=== PATIENT | female | born 1995 | race Caucasian/White ===

== ENCOUNTER 2019-11-05 19:32 | Emergency (ER) | payer MEDICAID, SELFPAY ==
[2019-11-05 19:36] VITALS: BP 119/76; PULSE 83; RESP 16; TEMP 36.9; O2SAT 99; BMI 37.4
--- NOTE | 2019-11-05 19:55 | ECG_ITS ---
Measurements Intervals [place] Rate: 81 P: 58 IA: 185 QRS: 59 QRSD: 94 T: 26 QT: 345 QTc: 402 SINUS RHYTHM WITH SINUS ARRHYTHMIA NON SPECIFIC T WAVE ABNORMALITY Compared to ECG 06/01/2015 15:32:35 No significant changes Electronically Signed On 11-06-2019 19:52:42 CDT by Meena Bruce M.D. [id number]
[2019-11-05 20:32] LABS: Basophils % 0.2 %; Eosinophils # 0.1 10^3/uL (0.0-0.8); Eosinophils % 1.5 %; Hemoglobin 12.6 g/dL (11.5-15.3); Lymphocytes # 2.1 10^3/uL (0.8-4.8); Lymphocytes % 22.7 %; Mean Corpuscular HGB Conc 34.1 g/dL (30.0-36.0); Mean Corpuscular Hemoglobin 29.9 pg (28.0-34.0); Mean Corpuscular Volume 87.9 fL (81-99); Mean Platelet Volume 13.6 fL (7.4-10.4); Monocytes # 0.8 10^3/uL (0.2-0.9); Monocytes % 8.1 %; Neutrophils # 6.3 10^3/uL (1.8-7.7); Neutrophils % 67.3 %; Nucleated Red Blood Cells % 0 %; Platelet Count 163 10^3/cmm (130-400); Positive M 1; Red Blood Count 4.21 10^6/uL (4.1-5.3); Red Cell Distribution Width 13.3 % (12.1-15.1); White Blood Count 9.4 10^3/uL (4.0-10.0)
--- NOTE | 2019-11-05 20:37 | ED_ITS ---
HPI - Syncope General: Chief Complaint: Syncope Stated Complaint: SYNC. EPISODE 14 WEEKS PREG Time Seen by Provider: 11/05/19 20:29 Source: patient Mode of arrival: ambulatory Limitations: no limitations History of Present Illness: HPI narrative: Patient is a 24-year-old female who states she is roughly 14 to 15 weeks . She states she laid down in bed today and felt lightheaded and states she either passed out or fell asleep and woke up 4 hours later did not realize it. Patient states she has had vomiting throughout the . She denies any vaginal bleeding. She denies any chest pain or abdominal pain. She denies any headaches. Associated symptoms: Deny abdominal pain, fever(s), headache(s) or nausea Review of Systems Const: Denies: fever(s), chills, body aches or change in appetite Eyes: Denies: blurry vision or eye discomfort ENMT: Denies: throat pain or dental pain Card: Reports: syncope Resp: Denies: dyspnea GI: Denies: abdominal pain, nausea, vomiting or diarrhea : Denies: dysuria Musc: Denies: neck pain or back pain Skin/Breast: Denies: rash Neuro: Denies: headache(s) Psych: Denies: depression Marcio/Lymph: Denies: easy bruising All/Imm: Denies: urticaria PFSH ED PFSH: Social History Smoking and tobacco status: current every day smoker Physical Exam Const: COMMON NORMALS: no acute distress, patient oriented x3 and healthy appearing HENMT: COMMON NORMALS: normocephalic and atraumatic HEAD & SCALP: norm ocephalic and atraumatic Eye: COMMON NORMALS: Equal, round and reactive pupils present and EOMs intact bilaterally PUPIL: Yes Equal, round and reactive pupils present Neck/C-Spine: COMMON NORMALS: full ROM and supple Chest: COMMONS NORMALS: normal inspection of the chest and normal palpation of entire chest wall Resp: COMMON NORMALS: normal respiratory effort, No retractions, No use of accessory muscles and clear to auscultation bilaterally AUSCULTATION: clear to auscultation bilaterally Cardio: COMMON NORMALS: regular rate, regular rhythm and No murmurs present (Cardio) RATE: regular rate RHYTHM: regular rhythm GI: COMMON NORMALS: Normal to inspection, nondistended, normoactive bowel sounds present, Soft to palpation, non-tender and no masses PALPATION: Yes Soft to palpation Extremity: COMMON NORMALS: normal to inspection and full ROM Neuro: COMMON NORMALS: patient oriented x3, moves all extremities and no focal motor deficits Psych: COMMON NORMALS: mental status grossly normal, Normal thought process present and cooperative THOUGHT PROCESS: Normal thought process present Skin: COMMON NORMALS: no rashes or lesions noted and no wounds GENERAL SKIN EXAM: no rashes or lesions noted Course Vital Signs: Vital signs: Vital Signs Temperature 98.4 F 11/05/19 19:36 Pulse Rate 83 11/05/19 19:36 Respiratory Rate 16 11/05/19 19:36 Blood Pressure 119/76 11/05/19 19:36 Pulse Oximetry 99 11/05/19 19:36 MDM - Syncope MDM Narrative: Medical decision making narrative: Patient presents here with couple event. Patient is well-appearing here and has had normal vital signs. Patient's hemoglobin here is normal electrolytes are normal as well. She has had some vomiting this so gave her IV hydration. Patient's bedside ultrasound here showed an IUP consistent with dates with heart rate of 146. Patient's had no vaginal bleeding or abdominal pain. She had no headache or chest pain. She is stable for discharge I will prescribe her Reglan for her nausea and vomiting she is to follow-up with her OB as scheduled. Lab Data: Labs: Lab Results 11/05/19 11/05/19 Range/Units 20:22 20:22 WBC 9.4 (4.0-10.0) 10^3/ uL RBC 4.21 (4.1-5.3) 10^6/u L Hgb 12.6 (11.5-15.3) g/dL Hct 37.0 (37.0-47.0) % MCV 87.9 (81-99) fL MCH 29.9 (28.0-34.0) pg MCHC 34.1 (30.0-36.0) g/dL RDW 13.3 (12.1-15.1) % Plt Count 163 (130-400) 10^3/c mm MPV 13.6 H (7.4-10.4) fL Neut % (Auto) 67.3 % Lymph % (Auto) 22.7 % [place] % (Auto) 8.1 % Eos % (Auto) 1.5 % Baso % (Auto) 0.2 % Neut # (Auto) 6.3 (1.8-7.7) 10^3/u L Lymph # (Auto) 2.1 (0.8-4.8) 10^3/u L [place] # (Auto) 0.8 (0.2-0.9) 10^3/u L Eos # (Auto) 0.1 (0.0-0.8) 10^3/u L Baso # (Auto) 0.0 (0.0-0.1) 10^3/u L Nucleated RBC % (a uto) 0 % Nucleated RBCs # 0.0 /100WBC Sodium 138 (136-145) mmol/L Potassium 3.9 (3.5-5.1) mmol/L Chloride 105 (98-107) mmol/L Carbon Dioxide 20 L (22-29) mmol/L Anion Gap 16.9 (5-19) BUN 5 L (6-20) mg/dL Creatinine 0.4 L (0.5-0.9) mg/dL GFR Calculation 197.8 H (90-130) mL/min Glucose 90 (65-115) mg/dL Calculated Osmolal ity 281 L (285-295) mOsm/k g Calcium 9.7 (8.5-10.5) mg/dL Total Bilirubin 0.2 (0.15-1.2) mg/dL AST 12 (0-32) U/L ALT 13 (0-33) U/L Alkaline Phosphata se 45 (35-105) IU/L Total Protein 6.8 (6.6-8.7) g/dL Albumin 4.1 (3.5-5.2) g/dL Globulin 2.7 (1.3-4.6) g/dL EKG Data^: EKG 1: Attestation: I personally reviewed and interpreted this EKG as follows: EKG interpretation date: 11/05/19 EKG interpretation time: 19:45 Interpretation: nsr hr [address] or t wave abnormalities qrs 94 qtc 383 Discharge Plan Discharge Patient Disposition: Home, Self-Care Clinical Impression: Vomiting affecting Syncope Qualifiers: Syncope type: unspecified Qualified Code(s): R55 - Syncope and collapse Condition: Stable Prescriptions: New Reglan 10 mg tablet 10 mg PO Q6H PRN (Reason: nausea and vomiting) Qty: 20 RF: 0 Discharge Orders: Discharge Order (Routine); Ordered 11/05/19 Ordered By: Dominguez Lenz Referrals: Jin Ayala DO [Emergency Department] - Discharge Diet: Advance as tolerated Discharge Activity: Resume usual activity Patient Instructions: Syncope (ED), Acute Nausea and Vomiting (ED) Coding Level of Care Code ED Producer Director for Chg Fwd Exam Comprehensive
[2019-11-05 20:47] LABS: Alanine Aminotransferase 13 U/L (0-33); Albumin Level 4.1 g/dL (3.5-5.2); Alkaline Phosphatase 45 IU/L (35-105); Anion Gap 16.9 (5-19); Aspartate Amino Transferase 12 U/L (0-32); Blood Urea Nitrogen 5 mg/dL (6-20); Calcium 9.7 mg/dL (8.5-10.5); Carbon Dioxide 20 mmol/L (22-29); Chloride 105 mmol/L (98-107); Globulin 2.7 g/dL (1.3-4.6); Glomerular Filtration Rate 197.8 mL/min (90-130); Glucose 90 mg/dL (65-115); Osmolality Calculated 281 mOsm/kg (285-295); Potassium 3.9 mmol/L (3.5-5.1); Sodium 138 mmol/L (136-145); Total Bilirubin 0.2 mg/dL (0.15-1.2); Total Protein 6.8 g/dL (6.6-8.7)
[2019-11-05] MEDS: sodium chloride 0.9% 1,000 ML 999 ML IV (21:08)
[2019-11-05 21:59] VITALS: BP 98/68; PULSE 68; RESP 18; O2SAT 99
== END 2019-11-05 22:04 | disposition home or self-care (01) ==
LOC: ER 21:05
PROVIDERS: Emergency Provider Emergency Medicine
DX: O26.892 Other specified pregnancy related conditions, second trimester (principal); R55 Syncope and collapse; Z3A.14 14 weeks gestation of pregnancy; O21.9 Vomiting of pregnancy, unspecified; O99.332 Smoking (tobacco) complicating pregnancy, second trimester; F17.210 Nicotine dependence, cigarettes, uncomplicated
CPT/HCPCS: 12345; 36415; 80053; 85025; 93005; 96360; 99282; 99283; J7030

== ENCOUNTER 2019-12-23 10:40 | Outpatient (CLI) | payer MEDICAID, SELFPAY ==
[2019-12-23 10:40] VITALS: BMI 37.8
[2019-12-23 11:00] VITALS: BP 126/77; PULSE 76
[2019-12-23 11:30] VITALS: TEMP 36.9
[2019-12-23 11:31] VITALS: BP 0/0
[2019-12-23 11:33] VITALS: BP 119/70; PULSE 67
[2019-12-23 12:33] LABS: Bilirubin Urine Neg (NEGATIVE); Blood Urine Neg (Negative); Glucose Urine UA Norm (Normal); Ketones Urine Negative (Negative); Leukocyte Esterase Urine Negative (Negative); Nitrate Urine Negative (Negative); Protein Urine Neg (Negative); Sulfosalicylic Acid Urine Negative (Negative); Urine Appearance Clear (CLEAR); Urine Color Straw (Yellow); Urobilinogen Urine Norm (Negative); pH Urine 8 (5-7)
[2019-12-23 12:34] LABS: Add Urine Culture? No; Bacteria Urine TRACE; Squamous Epithelial Cell Urine RARE (0-5)
[2019-12-23 12:55] VITALS: BP 102/69; PULSE 68; RESP 16; TEMP 36.9
== END 2019-12-23 13:00 | disposition home or self-care (01) ==
LOC: OPOB 10:50 → OBGYN 12:51
PROVIDERS: Visit Provider Family Medicine
DX: O26.899 Other specified pregnancy related conditions, unspecified trimester (principal); Z3A.00 Weeks of gestation of pregnancy not specified; M54.9 Dorsalgia, unspecified
CPT/HCPCS: 81001; 99211

== ENCOUNTER 2020-01-01 08:30 | Outpatient (CLI) | payer MEDICAID, SELFPAY ==
--- NOTE | 2020-01-01 08:36 | US_ITS ---
WS: [id number] ULTRASOUND OB COMPLETE TECHNIQUE: Complete ultrasound. CLINICAL INFORMATION: HIGH RISK /2ND TRIMESTER/ANATOMY CHECK COMPARISON: None. FINDINGS: Cervix measures 5.3 cm Single interuterine gestation is identified with cephalic presentation. Placenta is anterior. Placenta grade 0. Normal amniotic fluid volume. cardiac activity: 138 BPM. AGA: 22w1d DEJAN by ultrasound: 05/05/2020 Estimated weight: 507 g BDP: 5.1 cm = 21w3d HC: 19.9 cm = 22w0d AC: 17.2 cm = 22w1d FEMUR LENGTH: 4.0 cm = 23w0d Anatomic survey: Upper lip and profile not well visualized. Anatomic survey is normal. Normal stomach. Kidneys and bladder are normal. Normal 3 vessel cord. Norm al 3 vessel cord insertion. Normal 4 chamber heart. Normal spine. Intracranial contents are normal. N ormal posterior fossa and cisterna magna. US/US OB >= 14 weeks fetus [id number] IMPRESSION: 1. Single intrauterine with visualized cardiac activity. AGA 22w1d w ith DEJAN 05/05/2020. 2. Placenta is anterior. No evidence of abruption or previa. 3. Upper lip and profile not well visualized. Recommend 2-3 week interval foll ow-up for additional attempt. 4. anatomic survey is otherwise normal. 5. Normal amniotic fluid volume. 6. Abdominal circumference and head circumference at the lower end of the rang e for age.
== END 2020-01-01 08:31 | disposition home or self-care (01) ==
PROVIDERS: Visit Provider Family Medicine
DX: Z3A.22 22 weeks gestation of pregnancy (principal); O09.92 Supervision of high risk pregnancy, unspecified, second trimester
CPT/HCPCS: 76805

== ENCOUNTER 2020-01-17 13:57 | Outpatient (CLI) | payer MEDICAID, SELFPAY ==
--- NOTE | 2020-01-17 14:02 | US_ITS ---
WS: [id number] ULTRASOUND EARLY TECHNIQUE: Transabdominal sonography of the pelvis was performed. CLINICAL INFORMATION: HIGH RISK SUPERVISION LMP: 07/25/2019 Beta hCG: Unknown. COMPARISON: January 01, 2020 FINDINGS: Cervix measures 4.5 cm UTERUS AND GESTATIONAL SAC Intrauterine gestations: Estimated gestational age: 23w2d. Estimated delivery May 13, 2020 heart motion: 141 BPM. Subchorionic hemorrhage: None. Follow up anatomy survey demonstrates normal lips, nose, and profile today. Breech presentation with anterior placenta. OVARIES Right ovary: Normal. Left ovary: Normal. FREE FLUID None. 2. Estimated gestational age: 23w2d 3. Estimated delivery May 13, 2020 4. Fetus small for dates. 5. Anatomy follow-up demonstrates normal lips, nose, and profile today. 6. Breech presentation with anterior placenta. US/ OB limited [id number] IMPRESSION: 1. Single live intrauterine .
== END 2020-01-17 13:58 | disposition home or self-care (01) ==
LOC: US 13:58
PROVIDERS: Visit Provider Family Medicine
DX: Z3A.23 23 weeks gestation of pregnancy (principal); O09.92 Supervision of high risk pregnancy, unspecified, second trimester
CPT/HCPCS: 76815

== ENCOUNTER 2020-03-06 12:46 | Emergency (ER) | payer MEDICAID, SELFPAY ==
[2020-03-06 12:48] VITALS: BP 143/76; PULSE 77; RESP 18; TEMP 36.2; O2SAT 99; BMI 38.2
--- NOTE | 2020-03-06 12:57 | W.ED.DENTAL ---
HPI - Dental/Oral General: Chief complaint: Dental/Oral Stated complaint: dental pain Time Seen by Provider: 03/06/20 12:47 Source: patient Mode of arrival: ambulatory Limitations: no limitations History of Present Illness: HPI Narrative: Patient is a 24-year-old female who presents to ED today with complaints of pain and swelling to the right side of her face after a molar extraction last Wednesday. Patient tells me she was prescribed hydrocodone for her pain. She is not having any difficulty swallowing or controlling secretions at this time. Has not noticed any redness to her face. No fevers. MD Complaint: tooth pain Teeth map: 1. molar extraction Context: other (recent surgery) Associated symptoms: Denies ear or mastoid pain, fever(s) or odynophagia Review of Systems Const: Denies: fever(s), chills, body aches, fatigue or malaise Eyes: Denies: change in vision, blurry vision, photophobia, floaters or seeing flashes ENMT: Reports: dental pain; Denies: throat pain, enlarged tonsils, odynophagia, swelling of lips/tongue, oral sores, ear or mastoid pain, nasal discharge or nasal congestion Card: Denies: chest pain Resp: Denies: dyspnea GI: Denies: abdominal pain, nausea, vomiting or diarrhea : Denies: flank pain or dysuria Musc: Denies: neck pain or back pain Skin/Breast: Denies: rash Neuro: Denies: headache(s), numbness in extremities, weakness in extremities or sensory changes PFSH ED PFSH: Social History Smoking and tobacco status: current every day smoker Physical Exam Const: COMMON NORMALS: no acute distress, patient oriented x3, no limitations and alert HENMT: COMMON NORMALS: normocephalic, atraumatic, hearing grossly normal bilaterally, external ears normal, EAC's normal, TM's normal bilaterally, Normal external nose present, Normal nasal mucous membranes and turbinates present, moist oral mucous membranes, oropharynx normal and gingiva normal HEAD & SCALP: normal to inspection, normocephalic and atraumatic FACE & SINUS: normal facial exam and sinuses nontender NOSE: Normal external nose present and Normal nasal mucous membranes and turbinates present EXTERNAL EAR: Yes external ears normal EXTERNAL AUDITORY CANAL: EAC's normal TYMPANIC MEMBRANE: TM's normal bilaterally MOUTH: Normal oral and palatal mucosa present, lip normal and tongue normal TEETH & GINGIVA: Yes other (wisdom tooth extraction site appears clean at this time) THROAT: posterior oropharynx normal, tonsils normal and uvula midline OTHER: pt does have swelling throughout the R side of her face; no facial cellulitis Neck/C-Spine: COMMON NORMALS: full ROM, no lymphadenopathy and no meningeal signs Resp: COMMON NORMALS: normal respiratory effort Cardio: COMMON NORMALS: regular rate and regular rhythm RATE: regular rate RHYTHM: regular rhythm Neuro: COMMON NORMALS: patient oriented x3 SENSORIUM/ORIENTATION: Yes alert MENINGEAL SIGNS: Yes no meningeal signs Course Vital Signs: Vital signs: Vital Signs Temperature 97.2 F L 03/06/20 12:48 Pulse Rate 77 03/06/20 12:48 Respiratory Rate 18 03/06/20 12:48 Blood Pressure 143/76 03/06/20 12:48 Pulse Oximetry 99 03/06/20 12:48 MDM - Dental/Oral MDM Narrative: Medical decision making narrative: will go ahead and place on abx-she has an allergy to penicillins so will place on clindamycin; recommend she follow up with her dentist as soon as possible Discharge Plan Discharge Patient Disposition: Home Clinical Impression: History of third molar tooth extraction Qualifiers: Tooth loss class: unspecified tooth loss Qualified Code(s): K08.409 - Partial loss of teeth, unspecified cause, unspecified class Condition: Stable Prescriptions: New clindamycin HCl 300 mg capsule 300 mg PO Q6H 7 Days Qty: 28 RF: 0 Discharge Orders: Discharge Order (Routine); Ordered 03/06/20 Ordered By: Alejandra Chen Activity Restrictions/Additional Instructions: Please follow-up with your dentist as soon as possible. You may return to the emergency department for worsening pain, swelling, difficulty swallowing, fevers, any other concerns you may have. Discharge Date/Time: 03/06/20 13:23 Coding Level of Care Code ED Airset Caster for Nery Valladares
== END 2020-03-06 13:23 | disposition home or self-care (01) ==
PROVIDERS: Emergency Provider Physician Assistant
DX: K08.409 Partial loss of teeth, unspecified cause, unspecified class (principal); F17.210 Nicotine dependence, cigarettes, uncomplicated
CPT/HCPCS: 12345; 99282

== ENCOUNTER 2020-03-30 22:48 | Emergency (ER) | payer MEDICAID, SELFPAY ==
[2020-03-30 22:53] VITALS: BP 119/73; PULSE 88; RESP 18; TEMP 36.6; O2SAT 98; BMI 37.5
--- NOTE | 2020-03-30 23:03 | XRR_ITS ---
PROCEDURE INFORMATION: Exam: XR Left Ankle Exam date and time: 03/30/2020 11:08 PM Age: 24 years old Clinical indication: Injury or trauma; Swelling (edema); Left; Injury details: Twisted lt ankle, CO pain; Additional info: Injury, 36 weeks TECHNIQUE: Imaging protocol: XR Left ankle. Views: 3 or more views. COMPARISON: No relevant prior studies available. FINDINGS: Bones/joints: There is an age indeterminate small avulsion fracture adjacent to the tip of the medial malleolus and distal fibula. There is calcaneal enthesopathy. Soft tissues: There is soft tissue edema. No foreign body. Other findings: No osteochondral defect. XR/XR ankle LT min 3V* [id number] IMPRESSION: Age-indeterminate avulsion fractures of the medial malleolus and tip of the fibula are noted. No additional acute bony abnormality.
--- NOTE | 2020-03-30 23:06 | W.ED.EXTPRO ---
HPI - Extremity Problem General: Chief complaint: Extremity Injury, Lower Stated complaint: rolled ankle/swollen Time Seen by Provider: 03/30/20 23:03 History of Present Illness: HPI Narrative: Patient comes in today for complaints of left ankle pain. Patient reports stepping on a rock and twisting her ankle. Patient is 36 weeks without any difficulties with . Patient appears well. Patient appears in no acute distress. Review of Systems General: Reports: 10 or more systems reviewed and unremarkable except in HPI and below Musc: Reports: joint pain (left ankle) PFSH ED PFSH: Social History Smoking and tobacco status: current every day smoker Female Reproductive History: Date of last menstrual period: 07/22/19 Physical Exam Const: COMMON NORMALS: no acute distress and patient oriented x3 GENERAL APPEARANCE: cooperative HENMT: COMMON NORMALS: normocephalic, TM's normal bilaterally and Normal external nose present HEAD & SCALP: normal to inspection and normocephalic NOSE: Normal external nose present TYMPANIC MEMBRANE: TM's normal bilaterally MOUTH: Normal oral and palatal mucosa present THROAT: posterior oropharynx normal Eye: GENERAL EYE: appearance normal, both eyes and all related structures Neck/C-Spine: COMMON NORMALS: full ROM Lymph: LYMPHATIC: no lymphadenopathy noted Chest: COMMONS NORMALS: normal inspection of the chest Resp: COMMON NORMALS: normal respiratory effort EFFORT & INSPECTION: Yes able to speak in complete sentences Cardio: COMMON NORMALS: regular rate and regular rhythm RATE: regular rate RHYTHM: regular rhythm GI: COMMON NORMALS: non-tender : COMMON NORMALS: Yes no CVA tenderness BLADDER/KIDNEY EXAM: Yes no CVA tenderness Back/Pelvis: COMMON NORMALS: no CVA tenderness and thoracic and lumbar spine normal to inspection Extremity: NARRATIVE EXTREMITY EXAM: tenderness lateral left ankle Neuro: COMMON NORMALS: patient oriented x3 and moves all extremities Psych: COMMON NORMALS: mental status grossly normal and cooperative Skin: COMMON NORMALS: no rashes or lesions noted GENERAL SKIN EXAM: no rashes or lesions noted Course Vital Signs: Vital signs: Vital Signs Temperature 97.8 F 03/30/20 22:53 Pulse Rate 88 03/30/20 22:53 Respiratory Rate 18 03/30/20 22:53 Blood Pressure 119/73 03/30/20 22:53 Pulse Oximetry 98 03/30/20 22:53 MDM - Extremity (Nontraumatic) MDM Narrative: Medical decision making narrative: Patient comes in for evaluation of injury occurring this afternoon at about 3:00. Patient reports rolling her foot on gravel. Exam notes some mild swelling to the lateral left ankle and tenderness noted. Pulses are intact. Skin is warm and dry. No bruising is noted. Differential diagnosis includes but not limited to fracture, sprain, contusion. X-ray notes no acute fracture. Reviewed exam with patient with recommendations for treatment and follow-up. Patient reported understanding. Discharge Plan Discharge Patient Disposition: Home Clinical Impression: Ankle sprain and strain Condition: Stable Discharge Orders: Discharge Order (Routine); Ordered 03/30/20 Ordered By: Sree Mora Referrals: Hamilton Crockett MD [Primary Care Provider] - Discharge Diet: Usual diet Discharge Activity: Increase activity as tolerated and Use walker/crutches as instructed Patient Instructions: Ankle Sprain (ED) Activity Restrictions/Additional Instructions: Elastic bandage for comfort and support. Acetaminophen for pain. Ice pack for further pain relief. Use crutches as needed for ambulation if unable to bear weight. Follow-up with primary care as needed. Return to the emergency department for new concerns. Coding Level of Care Code ED Motorcycle Service Technician for Nery Valladares Exam Comprehensive
[2020-03-30 23:22] VITALS: BP 124/68; PULSE 68; RESP 18; O2SAT 97
[2020-03-30 23:41] VITALS: BP 124/72; PULSE 68; RESP 16; TEMP 36.6; O2SAT 98
== END 2020-03-30 23:44 | disposition home or self-care (01) ==
PROVIDERS: Emergency Provider Nurse Practitioner Family; PCP Family Medicine
DX: S93.402A Sprain of unspecified ligament of left ankle, initial encounter (principal); S96.912A Strain of unspecified muscle and tendon at ankle and foot level, left foot, initial encounter; F17.210 Nicotine dependence, cigarettes, uncomplicated; X50.1XXA Overexertion from prolonged static or awkward postures, initial encounter
CPT/HCPCS: 12345; 73610; 99281; 99283; E0114

== ENCOUNTER 2020-04-07 11:10 | Outpatient (CLI) | payer MEDICAID, SELFPAY ==
[2020-04-07 11:27] VITALS: TEMP 36.6; BMI 36.8
[2020-04-07 11:32] VITALS: BP 122/71; PULSE 79
[2020-04-07 12:03] VITALS: BP 114/72; PULSE 76
[2020-04-07 12:33] LABS: Protein Urine Neg (Negative); Specific Gravity, Urine 1.015 (1.005-1.030); Urine Appearance Clear (CLEAR); Urine Color Straw (Yellow); pH Urine 8 (5-7)
[2020-04-07 12:34] LABS: Add Urine Culture? No; Bacteria Urine TRACE /hpf; Bilirubin Urine Neg (Negative); Blood Urine Neg (Negative); Glucose Urine UA Norm (Normal); Ketones Urine Negative (Negative); Leukocyte Esterase Urine Negative (Negative); Mucus Urine 2+ /hpf; Nitrate Urine Negative (Negative); Squamous Epithelial Cell Urine 0-4 /hpf (0-5); Sulfosalicylic Acid Urine Negative (Negative); Urobilinogen Urine Norm (Negative); WBC Urine 0-4 /hpf (0-5)
== END 2020-04-07 12:05 | disposition home or self-care (01) ==
LOC: OPOB 11:14 → OBGYN 11:19
PROVIDERS: PCP Family Medicine; Visit Provider Family Medicine
DX: O26.899 Other specified pregnancy related conditions, unspecified trimester (principal); Z3A.00 Weeks of gestation of pregnancy not specified; R10.9 Unspecified abdominal pain
CPT/HCPCS: 59025; 81001; 99211

== ENCOUNTER 2020-05-07 22:16 | Inpatient (IN) | payer MEDICAID, SELFPAY ==
[2020-05-07 21:43] VITALS: BP 125/72; PULSE 83
[2020-05-07 22:16] VITALS: RESP 17; TEMP 36.7
[2020-05-07] MEDS: miSOPROStol 100 mcg tablet 25 MCG VAGINAL (22:36)
[2020-05-07 22:40] VITALS: BMI 38.7
[2020-05-07 23:21] VITALS: BP 130/76; PULSE 79
[2020-05-07 23:41] LABS: Basophils % 0.2 %; Eosinophils # 0.2 10^3/uL (0.0-0.8); Eosinophils % 1.3 %; Hematocrit 35.7 % (37.0-47.0); Lymphocytes # 2.4 10^3/uL (0.8-4.8); Lymphocytes % 18.5 %; Mean Corpuscular HGB Conc 33.6 g/dL (30.0-36.0); Mean Corpuscular Hemoglobin 30.6 pg (28.0-34.0); Mean Corpuscular Volume 91.1 fL (81-99); Mean Platelet Volume 13.4 fL (7.4-10.4); Monocytes % 7.8 %; Neutrophils # 9.22 10^3/uL (1.8-7.7); Neutrophils % 71.5 %; Nucleated Red Blood Cells % 0 %; Platelet Count 163 10^3/cmm (130-400); Red Blood Count 3.92 10^6/uL (4.1-5.3); Red Cell Distribution Width 13.7 % (12.1-15.1); White Blood Count 12.9 10^3/uL (4.0-10.0)
[2020-05-07 23:56] LABS: Amphetamines Screen Urine Negative (Negative); Barbiturates Screen Urine Negative (Negative); Benzodiazepines Screen Urine Negative (Negative); Cocaine Screen Urine Negative (Negative); Opiate Screen Urine Negative (Negative); PCP Screen Urine Negative (Negative); THC Screen Urine Positive (Negative)
[2020-05-08] VITALS (113 sets, daily range): BP systolic 0–162; BP diastolic 0–115; PULSE 36–107; RESP 16–20; TEMP 36.4–37.1; O2SAT 91–100
[2020-05-08] MEDS: miSOPROStol 100 mcg tablet 25 MCG VAGINAL (02:36)
[2020-05-08] MEDS: miSOPROStol 100 mcg tablet 25 MCG SUBLINGUAL (06:35)
[2020-05-08] MEDS: dextrose 5%-lactated ringers 1,000 ML 125 ML IV ×2 (09:39→18:30)
[2020-05-08] MEDS: oxytocin 30 UNIT/500 ML BAG IV (10:49)
[2020-05-08] MEDS: lactated ringers 1,000 ML 999 ML IV ×2 (13:49→15:03)
[2020-05-08] MEDS: fentaNYL 50 mcg/mL INJ 2mL IVP (14:09)
--- NOTE | 2020-05-08 14:59 | ANES.PREANE2 ---
Pre-Anesthetic Assessment Pre-Anesthetic Assessment: Height/Weight: Height 1.63 m Weight 102.512 kg Temp Pulse Resp BP Pulse Ox 97.6 F 82 18 111/53 100 05/08/20 08:48 05/08/20 14:57 05/08/20 14:09 05/08/20 14:57 05/08/20 14:56 Preop Diagnosis: IUP Proposed Procedure: epidural Familial anesthetic complications: None Was Beta Ilir taken within 24 hours: N/A Social: Social History: No alcohol and No tobacco Exam: Pre-Anes Outpt Exam: alert, oriented x 3, clear to auscultation bilaterally and regular rate & rhythm Airway: Cervical ROM: WNL MP: 3 Dentition: Full Metabolic: Metabolic: Morbid obesity Anesthetic Plan: ASA status: 2 Anesthesia: Regional (specify below) Risk of > 500 ml blood loss (7ml/kg in children): No Meds/Allergies Current Medications: Current Medications Generic Name Dose Route Start Last Admin Trade Name Freq PRN Reason Stop Dose Admin Fentanyl 25 - 100 mcg 05/07/20 22:15 05/08/20 14:09 Fentanyl 50 Mcg/ Ml Inj 2ml IVP 25 mcg Q1H PRN Administration SEVERE PAIN Lactated Ringer's 1,000 mls @ 999 m ls/hr 05/07/20 22:15 05/08/20 13:49 Lactated Ringers IV 999 mls/hr .Q1H1M PRN Administration See label comment s Dextrose/Lactated Ringer's 1,000 mls @ 125 m ls/hr 05/07/20 22:30 05/08/20 13:49 Dextrose 5%-Lact ated Ringers IV Infused .Q8H DONY Infusion Oxytocin 30 unit in 500 ml s @ 1 mls/hr 05/08/20 10:45 05/08/20 12:20 Pitocin IV 12 milliunit/min .Q24H DONY 12 mls/hr Titration Protocol 1 MILLIUNIT/MIN PFSH Anesthesia PFSH: Social History Smoking and tobacco status: current every day smoker Female Reproductive History: Date of last menstrual period: 07/22/19 : 3 Data Anesthesia CBC & Chem 7: 05/07/20 23:05 Other Labs: Laboratory Results - last 48 hr 05/07/20 05/07/20 23:00 23:05 WBC 12.9 H RBC 3.92 L Hgb 12.0 Hct 35.7 L MCV 91.1 MCH 30.6 MCHC 33.6 RDW 13.7 Plt Count 163 MPV 13.4 H Neut % (Auto) 71.5 Lymph % (Auto) 18.5 [place] % (Auto) 7.8 Eos % (Auto) 1.3 Baso % (Auto) 0.2 Neut # (Auto) 9.22 H Lymph # (Auto) 2.4 [place] # (Auto) 1.0 H Eos # (Auto) 0.2 Baso # (Auto) 0.0 Nucleated RBC % (auto) 0 Nucleated RBCs # 0.0 Urine Opiates Screen Negative Ur Barbiturates Screen Negative Ur Phencyclidine Scrn Negative Ur Amphetamines Screen Negative U Benzodiazepines Scrn Negative Urine Cocaine Screen Negative U Marijuana (THC) Screen Positive H Cardiac Studies: No Data to Display Anesthesia Procedures Epidural: Time Out Performed: Yes Consents Signed: Procedure Consent, NPO Consent and No Consent Needed Consent: requested by attending/covering physician, from patient, from other, risks and benefits reviewed and patient agrees to proceed Lumbar Level: L3-L4 Epidural position: sitting Epidural procedure: sterile prep of area, 1% lidocaine to numb the area, 18 g needle, negative for paresthesia passed, neg for paresthesia, test dose given, 1.5% xylocaine 1:200k epi (5 cc (divided dose)), 0.2% Ropivacaine bolus ml (5), placed PCEA, no systemic response, sterile dressing applied, L.U.D. no apparent complications and 0.2% Ropiavacaine @ mls/hr (13) Additional Comments: ERICK at 6.5 cm threaded to 13 cm at skin
--- NOTE | 2020-05-08 17:30 | PC.RESP ---
Smoking Cessation information sent to patient.
--- NOTE | 2020-05-08 18:24 | PM.DELIVERY ---
Delivery Note: Date of delivery: May 08, 2020 Pre-Delivery Course: The patient is a 24-year-old 2 para 1-0-0-1 with an estimated gestational age of 39 weeks who presented to the hospital for induction due to gestational hypertension. The patient had an relatively unremarkable . Her GBS status is negative. Her Covid status is negative. Her glucose screen was negative. Her blood type is O+. The remainder of her labs are within normal limits. She presented to the hospital where she was placed on Cytotec 25 mcg x 3. An amniotomy was performed. Pitocin was used to augment her labor. An epidural was placed. She progressed to complete without difficulty. Delivery: DELIVERY: The patient progressed to complete without difficulty. She delivered a female with a weight of 6 pounds 8 ounces with Apgars of 9, 9. The baby was delivered from the IVELISSE position. The baby's mouth and nose were suctioned at the site of the perineum. The baby was then completely delivered and placed on the mother's abdomen. The cord was then clamped and cut. There was no nuchal cord. There was no meconium. The placenta and 3 vessel cord were delivered intact shortly thereafter. The perineum and vaginal vault were carefully examined. No lacerations were noted. Both the mother and the baby were in stable condition. The patient had an estimated blood loss 150 mL. A&P Assessment and plan (1) 39 weeks gestation of : Anticipate routine care. She plans to breast-feed. Status: Acute (2) Spontaneous vaginal delivery: Status: Acute (3) Gestational hypertension: Status: Acute Coding Level of Care Code Acute Diversified Crops Farmer for Chg Fwd Diagnoses 39 weeks gestation of Z3A.39 Spontaneous vaginal delivery O80 Gestational hypertension O13.9
--- NOTE | 2020-05-08 21:29 | PC.NURSE ---
AT 2049, PT AMBULATED TO ROOM, WITH IN OPEN CRIB AND PATTERN PERFORATING MACHINE OPERATOR WALKING ALONGSIDE FOR STANDBY ASSISTANCE. PT TOLERATED AMBULATION WELL.
[2020-05-08] MEDS: ibuprofen 800 mg tablet PO (21:38)
[2020-05-09] VITALS (7 sets, daily range): BP systolic 94–120; BP diastolic 61–79; PULSE 69–76; RESP 16–17; TEMP 36.6–37.2; O2SAT 96–98
[2020-05-09] MEDS: HYDROcodone-acetaminophen 5-325 mg Tablet PO ×3 (00:02→15:17)
[2020-05-09 05:49] LABS: Hematocrit 33.4 % (37.0-47.0); Hemoglobin 11.1 g/dL (11.5-15.3); Mean Corpuscular HGB Conc 33.2 g/dL (30.0-36.0); Mean Corpuscular Hemoglobin 30.8 pg (28.0-34.0); Mean Corpuscular Volume 92.8 fL (81-99); Mean Platelet Volume 13.1 fL (7.4-10.4); Platelet Count 133 10^3/cmm (130-400); Red Cell Distribution Width 13.7 % (12.1-15.1); White Blood Count 13.3 10^3/uL (4.0-10.0)
--- NOTE | 2020-05-09 07:12 | PM.OBGYDC ---
Discharge Providers [employer] Date of Admission: 05/07/20 22:16 Date of Discharge: 05/09/20 Attending Provider at Admission: Hamilton Crockett MD Attending Provider at Discharge: Hamilton Crockett MD Primary Care Provider: Hamilton Crockett MD Diagnoses at Discharge Discharge Diagnosis (1) 39 weeks gestation of : Status: Acute (2) Spontaneous vaginal delivery: Status: Acute (3) Gestational hypertension: Status: Acute (4) History of marijuana use: Status: Acute Reason for Visit Reason for Visit: induction Hospital Course Hospital Course The patient presented to the hospital due to gestational hypertension for induction. She was given Cytotec 25 mcg x 3. An amniotomy was performed. An epidural was placed. Pitocin augmentation occurred. She progressed to complete and had an unremarkable delivery of a healthy appearing female infant. Her course was also unremarkable. She breast-fed well. Her bleeding was within normal limits. Her pain was well controlled. There were no concerns. Information Peripartum Data: Delivery Method: Vaginal Physical Exam Narrative: EXAM NARRATIVE: The patient is alert. She appears comfortable. Her heart has a regular rate and rhythm with no murmurs appreciated. Lungs are clear to auscultation bilaterally. Her fundus is firm and below the umbilicus. Urinary Catheter Management^: Taylor: Cath Placed During This Visit: yes, but has since been removed by the nurse Reason for Continuing Indwelling Catheter: Required Immobilization for Trauma or Surgery or Anesthesia Urinary Catheter Date of Insertion: 05/08/20 Urinary Catheter Time of Insertion: 15:50 Date Urinary Catheter Removed: 05/08/20 Time Urinary Catheter Discontinued: 17:56 Discharge Data Data Completed and Pending: Labs from last 24 hours 05/09/20 05:40 WBC 13.3 H RBC 3.60 L Hgb 11.1 L Hct 33.4 L MCV 92.8 MCH 30.8 MCHC 33.2 RDW 13.7 Plt Count 133 MPV 13.1 H Vitals: Last Vital Signs Temp 97.8 F 05/09/20 03:50 Pulse 69 05/09/20 03:50 Resp 16 05/09/20 03:50 BP 94/61 05/09/20 03:50 Pulse Ox 97 05/09/20 03:50 Discharge Plan Discharge Patient Disposition: Home Condition: Stable Prescriptions: New ibuprofen 800 mg Tablet 800 mg PO TID Qty: 30 RF: 0 sertraline 50 mg Tablet 25 mg PO DAILY Qty: 30 RF: 1 Continued Complete 14 mg iron- 400 mcg Tablet 1 tab PO DAILY RF: 0 Discontinued fluoxetine 20 mg capsule 20 mg PO DAILY RF: 0 Discharge Orders: Discharge Order (Routine); Ordered 05/09/20 Ordered By: Hamilton Crockett Referrals: Hamilton Crockett MD [Primary Care Provider] - 6 Weeks Discharge Diet: Regular Discharge Activity: Limit activity as instructed Discharge Attestations [employer] Time Spent in Discharge Care*: less than 30 min Coding Level of Care Code Acute [employer] Adjuster for Chg Fwd Diagnoses 39 weeks gestation of Z3A.39 Spontaneous vaginal delivery O80 Gestational hypertension O13.9 History of marijuana use Z87.898
[2020-05-09] MEDS: prenatal vitamin Capsule 1 CAP PO (08:41)
[2020-05-09] MEDS: ibuprofen 800 mg tablet PO ×2 (08:41→14:15)
[2020-05-09] MEDS: sertraline 50 mg Tablet 25 MG PO (08:41)
[2020-05-09] MEDS: docusate sodium 100 mg Capsule PO (08:41)
--- NOTE | 2020-05-09 09:12 | PC.NURSE ---
[facility] stated that everything was good with the patient and could be discharged home with baby
--- NOTE | 2020-05-09 11:17 | ANE.PACU2 ---
Inpatient post-anesthesia follow up: Airway intact: Yes Vital signs: Temperature 98 F Pulse Rate 76 Respiratory Rate 16 Blood Pressure 102/68 Pulse Oximetry 98 Oxygen Delivery Me thod Room Air Oxygen Flow Rate Fraction of Inspir ed Oxygen Hydration adequate: Yes Nausea and vomiting: No Pain level: 1 Mental status: Baseline Additional Comments: No signs of infection at neuraxial site, no headache, urinating without gallegos, had some residual parasthesia in R leg in meralgia parasthestica location, but that wore off when she was transferred to post-labor room, up and walking without any numbness or weakness in legs now
== END 2020-05-09 20:20 | disposition home or self-care (01) | DRG 807 ==
PROVIDERS: Admitting Provider Family Medicine; PCP Family Medicine; Visit Provider Family Medicine
DX: O13.4 Gestational [pregnancy-induced] hypertension without significant proteinuria, complicating childbirth (principal); Z37.0 Single live birth; O99.214 Obesity complicating childbirth; E66.01 Morbid (severe) obesity due to excess calories; O99.324 Drug use complicating childbirth; F12.90 Cannabis use, unspecified, uncomplicated; Z3A.39 39 weeks gestation of pregnancy
CPT/HCPCS: 12345; 36415; 51702; 59025; 59409; 80306; 85025; 85027; 96375; 98960; J2795; J3010